=== PATIENT | female | born 1980 | race Caucasian/White ===

== ENCOUNTER 2019-12-18 10:42 | Outpatient (CLI) | payer MEDICAID, SELFPAY ==
--- NOTE | 2019-12-18 11:45 | MR_ITS ---
WS: [id number] MRI LUMBAR SPINE WITH AND WITHOUT CONTRAST. HISTORY: lumbar pain COMPARISON: 10/02/2019 and 09/11/2018 and 02/26/2018 TECHNIQUE: Sagittal and axial multisequence imaging is submitted. Postcontrast imaging in 2 planes. Mild straightening of the normal lumbar lordosis. Mild disc desiccation L2-3 and L3-4. No marrow shahid a or fracture. No widening of the neural foramen. There is a well-circumscribed soft tissue mass which is been previously described posteriorly at the L5-S1 level. Suspect this is an intradural lesion and surrounded by CSF. Mild displacement of the lef t-sided nerve roots. On the postcontrast imaging there is intense enhancement and this lesion measure s 9 x 8 mm without significant increase in size. There is no extension into the neural foramen. There is mild thickening and possible dural extension to the LEFT. Conus terminates normally at L1-2 disc level. L1-L2: Fluid in the facet joints. No stenosis. L2-L3: Mild asymmetric disc bulging to the LEFT. Very mild broad-based LEFT foraminal protrusion. L3-L4: Mild facet arthritis. L4-L5: Normal. L5-S1: No stenosis. Negative retroperitoneum. MR/MR lumbar spine wo/w con [id number] IMPRESSION: 1. Long-term stability of an intrathecal mass with intense enhancement posteri lashawn and to the LEFT at L5-S1. Mass measures 9 x 8 mm with no increase in size over several years. Favor schwannoma. 2. No central or foraminal stenosis or other abnormalities.
== END 2019-12-18 10:43 | disposition home or self-care (01) ==
LOC: RADSHAW 10:45
PROVIDERS: PCP Nurse Practitioner Family; Visit Provider Specialist
DX: M54.5 Low back pain (principal)
CPT/HCPCS: 72158; A9579

== ENCOUNTER 2019-12-30 09:53 | Day surgery (SDC) | payer MEDICAID, SELFPAY ==
[2019-12-30] VITALS (17 sets, daily range): BP systolic 134–192; BP diastolic 67–106; PULSE 73–104; RESP 18–30; TEMP 36.2–37.6; O2SAT 96–100
--- NOTE | 2019-12-30 10:20 | ANES.PREANE2 ---
Pre-Anesthetic Assessment Pre-Anesthetic Assessment: Height/Weight: Height 1.6 m Weight 116.12 kg Temp Pulse Resp BP Pulse Ox 99.6 F 87 18 145/106 100 12/30/19 10:17 12/30/19 10:17 12/30/19 10:17 12/30/19 10:17 12/30/19 10:17 Preop Diagnosis: Melena, cholelithiasis Proposed Procedure: Operation Date: 12/30/19 11:40 Proposed Procedures p EGD/Possible biopsy [id number] K21.9 K81.9(Not Applicable) - Bart Patterson MD s Laparoscopic Cholecystectomy/Possible open(Not Applicable) - Bart Patterson MD Familial anesthetic complications: none Was Beta Benito taken within 24 hours: N/A Last intake: Intake Last Liquid Date 12/30/19 Last Liquid Time 07:00 Last Solid Date 12/29/19 Last Solid Time 18:00 Social: Social History: No alcohol and No tobacco Airway: Cervical ROM: WNL MP: 2 Dentition: Other (missing) CV/HEM: CV/HEM: HTN GI: GI: GERD Metabolic: Metabolic: Morbid obesity Neuropsych: Comments: schwannoma (L) Anesthetic Plan: ASA status: 2 Anesthesia: General Risk of > 500 ml blood loss (7ml/kg in children): No PFSH Anesthesia PFSH: Medical History GERD (gastroesophageal reflux disease) Hypercholesterolemia Hypertension Intervertebral disc disorder with radiculopathy of lumbosacral region Schwannoma Surgical History (Updated 12/30/19 @ 08:27 by Bart Patterson MD) H/O dilation and curettage History of colonoscopy History of esophagogastroduodenoscopy (EGD) (12/30/19) S/P laparotomy for ectopic Status post laparoscopic cholecystectomy (12/30/19) Family History Father Hypertension Mother Hypertension Social History Smoking and tobacco status: never smoked Alcohol intake: never Marital status: Single Current occupational status: unemployed History of recent travel: No Data Anesthesia Cardiac Studies: No Data to Display
[2019-12-30] MEDS: sodium chloride 0.9% 1,000 ML 30 ML IV (10:34)
[2019-12-30] MEDS: ondansetron 2 mg/ML SDV 2 mL 4 MG IVP ×3 (10:35→12:53)
[2019-12-30] MEDS: scopolamine 1.5 Patch 1 PATCH TRANSDERMA (10:35)
--- NOTE | 2019-12-30 12:24 | SUR.PHASEI ---
1223 PATIENT TO PACU FROM OR. NO DISTRESS. PWD. PLACED ON SIMPLE MASK AT 8L, SPO2 96%. 4 STABS TO ABDOMEN, CLOSED WITH EXOFIN.
[2019-12-30] MEDS: fentaNYL 50 mcg/mL INJ 2mL IVP ×2 (12:32→12:47)
[2019-12-30] MEDS: meperidine 50 mg/mL INJ 12.5 MG IVP ×2 (12:37→12:44)
[2019-12-30] MEDS: metoclopramide 5 mg/mL SDV 2 mL 10 MG IVP (12:57)
[2019-12-30] MEDS: morphine 4 mg/mL SDV 1 mL 2 MG IVP (13:00)
--- NOTE | 2019-12-30 13:12 | SUR.PHASEI ---
1307 PATIENT TO OPS AT THIS TIME. NAUSEA IMPROVED. PATIENT CONTINUES TO RATE PAIN 7/10. PATIENT NEEDING TO USE BATHROOM, DECLINES BEDPAN. THIS NURSE ASSISTED PATIENT TO BSC. ANESTHESIA AWARE OF LAST DOSE OF PAIN MEDICATION, THIS NURSE REMAINED WITH PATIENT UNTIL 1315.
--- NOTE | 2019-12-31 10:23 | PM.OP ---
Operative Report Date of procedure: December 30, 2019 Pre-op Diagnosis: Melena, cholelithiasis Post-op Diagnosis: Normal EGD Cholelithiasis Procedure Done: Normal esophagogastroduodenoscopy Laparoscopic cholecystectomy Pathology: none sent Surgeon: Bart Patterson Anesthesia: General Estimated blood loss (mL): 10 Condition: stable Disposition: PACU Procedure: The patient was taken to the operating room and was intubated under general anesthesia. After the antibiotic had been administered, the abdomen was prepped and draped in a sterile manner. Using a #15 blade, a 1 centimeter infraumbilical curvilinear incision was made and using an open Melly technique the peritoneal cavity was entered. A 10 millimeter port was placed and 15 millimeters of pneumoperitoneum was created. A 10 millimeter, 30 degrees scope was then introduced. Three 5 millimeter ports were placed in the epigastric, midclavicular and the anterior axillary line two fingerbreadths below the costal margin on the right side under the direct visualization. Ratcheted forceps were introduced into the lateral most port and was used to retract the fundus of the gallbladder cephalad and using forceps the infundibulum of the gallbladder was retracted laterally. Using L-hook cautery the peritoneum overlying the Calot's triangle was opened medially and laterally until the cystic duct and the cystic artery were skeletonized. Dissection was carried along the body of the gallbladder and after ensuring critical view of safety, 4 clips applied on the cystic duct and 3 clips applied on the cystic artery and cut leaving, 3 clips on the remaining portion of the duct and 2 clips on the remaining portion of the artery. The rest of the gallbladder was dissected off the liver using L-hook cautery. There was no bleeding or bile leaking noted from the gallbladder fossa and the clips appeared to be in place. An EndoCatch bag was introduced to remove the gallbladder. All the ports were removed under direct visualization and there was no bleeding noted from the port sites. The fascia of the umbilicus was closed using [id number] 0 Vicryl sutures and the subcutaneous tissue was approximated using 3-0 Vicryl sutures. The skin at all four ports were closed using 4-0 Monocryl and Dermabond. A total of 10 millimeters of 0.5% Marcaine was infiltrated around the port sites. A bite-block was placed and the gastroscope was introduced and advanced up to the second portion of the duodenum and slowly withdrawn. The first and second portion of the duodenum was normal. The pylorus, antrum, body and fundus of the stomach was normal. Z line at 40 cm. The rest of the esophagus was normal. The gastroscope was withdrawn. The patient was stable throughout the procedure.
--- NOTE | 2020-01-07 15:59 | W.PM.OPSUD ---
Surgery/Procedure H&P Update DATE OF PROCEDURE: December 30, 2019 DATE H&P PERFORMED: 12/29/19 H&P UPDATE INFORMATION: I have reviewed H&P completed within last 30 days, I have examined patient prior to procedure and No changes to prior documentation PREOP DIAGNOSIS: Melena, cholelithiasis PLANNED PROCEDURE: Operation Date: 12/30/19 11:40 Proposed Procedures p EGD/Possible biopsy [id number] 32615 K21.9 K81.9(Not Applicable) - Bart Patterson MD s Laparoscopic Cholecystectomy/Possible open(Not Applicable) - Bart Patterson MD
== END 2019-12-30 13:59 | disposition home or self-care (01) ==
LOC: OR 09:56
PROVIDERS: PCP Nurse Practitioner Family; Visit Provider Surgery
PROC: 0DJ08ZZ Inspection of Upper Intestinal Tract, Via Natural or Artificial Opening Endoscopic (ICD-10-PCS; CPT 43235; principal; 2019-12-30 11:00)
PROC: 0FT44ZZ Resection of Gallbladder, Percutaneous Endoscopic Approach (ICD-10-PCS; CPT 47562; 2019-12-30 11:00)
DX: K80.10 Calculus of gallbladder with chronic cholecystitis without obstruction (principal); K92.1 Melena; I10 Essential (primary) hypertension; K21.9 Gastro-esophageal reflux disease without esophagitis; E66.01 Morbid (severe) obesity due to excess calories; Z68.42 Body mass index [BMI] 45.0-49.9, adult; Z79.891 Long term (current) use of opiate analgesic; E78.00 Pure hypercholesterolemia, unspecified; Z82.49 Family history of ischemic heart disease and other diseases of the circulatory system
CPT/HCPCS: 43235; 47562; 12345; 88304; J0690; J2175; J2270; J2405; J2704; J2765; J3010; J3490; J7030

== ENCOUNTER 2020-01-16 13:30 | Emergency (ER) | payer MEDICAID, SELFPAY ==
[2020-01-16 14:00] VITALS: BP 146/98; PULSE 130; RESP 26; TEMP 37.2; O2SAT 96; BMI 43.5
--- NOTE | 2020-01-16 14:38 | W.ED.NAVMDI ---
HPI - Nausea/Vomiting/Diarrhea General: Chief complaint: Nausea/Vomiting/Diarrhea Stated complaint: n/v two days Time Seen by Provider: 01/16/20 14:14 History of Present Illness: HPI Narrative: Patient is a 39-year-old female who comes the ED with abdominal pain, nausea and vomiting. Symptoms started approximately 2 days ago. Patient had a laparoscopic cholecystectomy performed on December 29, with no complications. For the past 2 days patient says she has had right upper quadrant abdominal pain that she rates a 10 out of 10. The nausea and vomiting is been constant and she is not been able to keep any food or drink down. Associated nausea: Yes Associated symtoms: Reports nausea; Denies change in vision, chest pain, dysuria, fatigue, headache(s) or palpitations Review of Systems Const: Denies: fever(s), chills or fatigue Eyes: Denies: change in vision or eye discomfort ENMT: Denies: throat pain, odynophagia, nasal discharge or nasal congestion Card: Denies: chest pain, palpitations, edema, swelling of feet/ankles, dyspnea on exertion or orthopnea Resp: Denies: dyspnea, productive cough or non-productive cough GI: Reports: abdominal pain (RUQ), nausea and vomiting; Denies: diarrhea, constipation or hematochezia : Denies: flank pain, dysuria or hematuria Musc: Denies: neck pain, back pain or extremity swelling Skin/Breast: Denies: rash or new lesions Neuro: Denies: headache(s), numbness in extremities or weakness in extremities PFS ED PFSH: Medical History GERD (gastroesophageal reflux disease) Hypercholesterolemia Hypertension Intervertebral disc disorder with radiculopathy of lumbosacral region Schwannoma Surgical History H/O dilation and curettage History of colonoscopy History of esophagogastroduodenoscopy (EGD) (12/30/19) S/P laparotomy for ectopic Status post laparoscopic cholecystectomy (12/30/19) Family History Father Hypertension Mother Hypertension Social History Smoking and tobacco status: never smoked Alcohol intake: never Marital status: Single Current occupational status: unemployed History of recent travel: No Physical Exam Const: COMMON NORMALS: patient oriented x3 and alert GENERAL APPEARANCE: cooperative and ill appearing (Patient appears uncomfortable and in pain.) HENMT: COMMON NORMALS: normocephalic HEAD & SCALP: normocephalic MOUTH: Normal oral and palatal mucosa present THROAT: posterior oropharynx normal and uvula midline Eye: COMMON NORMALS: Equal, round and reactive pupils present PUPIL: Yes Equal, round and reactive pupils present Neck/C-Spine: COMMON NORMALS: supple GENERAL: Yes normal visual inspection Resp: COMMON NORMALS: normal respiratory effort, No retractions, No use of accessory muscles and clear to auscultation bilaterally AUSCULTATION: clear to auscultation bilaterally Cardio: COMMON NORMALS: regular rate, regular rhythm, S1 normal heart sound present, S2 normal heart sound present, No gallops present (Cardio), No clicks present (Cardio), No murmurs present (Cardio) and Peripheral pulses 2+ throughout RATE: regular rate RHYTHM: regular rhythm HEART SOUNDS: S1 normal heart sound present and S2 normal heart sound present PERIPHERAL PULSES: Peripheral pulses 2+ throughout GI: COMMON NORMALS: Normal to inspection, nondistended, normoactive bowel sounds present, Soft to palpation and no masses INSPECTION: Yes central obesity AUSCULTATION: Yes normoactive bowel sounds PALPATION: Yes Soft to palpation and Yes Tenderness to palpation present (GI) Details: RUQ : COMMON NORMALS: Yes no CVA tenderness BLADDER/KIDNEY EXAM: Yes no CVA tenderness Back/Pelvis: COMMON NORMALS: no CVA tenderness Extremity: COMMON NORMALS: normal to inspection Neuro: COMMON NORMALS: patient oriented x3 and moves all extremities SENSORIUM/ORIENTATION: Yes alert Skin: COMMON NORMALS: no rashes or lesions noted GENERAL SKIN EXAM: no rashes or lesions noted and dry skin Course Vital Signs: Vital signs: Vital Signs Temperature 99.0 F 01/16/20 14:00 Pulse Rate 103 H 01/16/20 17:48 Respiratory Rate 14 01/16/20 17:48 Blood Pressure 138/84 01/16/20 17:48 Pulse Oximetry 92 01/16/20 17:48 MDM - Nausea/Vomiting/Diarrhea MDM Narrative: Medical decision making narrative: Patient care was handed over to Aroldo Davenport's EQUIPMENT WASHER at 5 PM. I discussed patient's case with him and told him I am waiting on CT results to determine discharge plan. Patient is a 39-year-old female comes to the ED with right upper quadrant abdominal pain, nausea and vomiting. White blood cell count 16.7. Patient's pain nausea and vomiting was controlled with IV fluids Dilaudid, Reglan. Ultrasound of the right upper quadrant showed no acute findings. CT of the abdomen showed colitis. Patient was discharged and given a prescription for ciprofloxacin, Flagyl and promethazine. Follow-up with PCP in several days and return to ED precautions given. Patient understood and agreed with plan. Lab Data: Attestation: I reviewed the patient's lab results. Labs: Lab Results 01/16/20 01/16/20 01/16/20 Range/Units 14:45 14:45 14:45 WBC 16.7 H (4.0-10.0) 10^3/ uL RBC 4.36 (4.1-5.3) 10^6/u L Hgb 13.0 (11.5-15.3) g/dL Hct 39.1 (37.0-47.0) % MCV 89.7 (81-99) fL MCH 29.8 (28.0-34.0) pg MCHC 33.2 (30.0-36.0) g/dL RDW 12.6 (12.1-15.1) % Plt Count 385 (130-400) 10^3/c mm MPV 11.4 H (7.4-10.4) fL Neut % (Auto) 80.4 % Lymph % (Auto) 10.7 % Atlantic % (Auto) 8.2 % Eos % (Auto) 0.0 % Baso % (Auto) 0.2 % Neut # (Auto) 13.42 H (1.8-7.7) 10^3/u L Lymph # (Auto) 1.8 (0.8-4.8) 10^3/u L Atlantic # (Auto) 1.4 H (0.2-0.9) 10^3/u L Eos # (Auto) 0.0 (0.0-0.8) 10^3/u L Baso # (Auto) 0.0 (0.0-0.1) 10^3/u L Nucleated RBC % (a uto) 0 % Nucleated RBCs # 0.0 /100WBC Sodium 144 (136-145) mmol/L Potassium 3.4 L (3.5-5.1) mmol/L Chloride 99 (98-107) mmol/L Carbon Dioxide 26 (22-29) mmol/L Anion Gap 22.4 H (5-19) BUN 16 (6-20) mg/dL Creatinine 1.4 H (0.5-0.9) mg/dL GFR Calculation 41.4 L (90-130) mL/min Glucose 142 H (65-115) mg/dL Calculated Osmolal ity 297 H (285-295) mOsm/k g Calcium 10.9 H (8.5-10.5) mg/dL Total Bilirubin 0.8 (0.15-1.2) mg/dL AST 36 H (0-32) U/L ALT 41 H (0-33) U/L Alkaline Phosphata se 60 (35-105) IU/L Total Protein 8.0 (6.6-8.7) g/dL Albumin 5.1 (3.5-5.2) g/dL Globulin 2.9 (1.3-4.6) g/dL Lipase 42 (13-60) U/L HCG, Qual Negative (Negative) Urine Color (Yellow) Urine Appearance (CLEAR) Urine pH (5-7) Ur Specific Gravit y (1.005-1.030) Urine Protein (Negative) Urine Glucose (UA) (Normal) Urine Ketones (Negative) Urine Blood (Negative) Urine Nitrate (Negative) Urine Bilirubin (NEGATIVE) Urine Urobilinogen (Negative) mg/dL Ur Leukocyte Anupama ase (Negative) Urine RBC (0-2) /hpf Urine WBC (0-5) /hpf Ur Squamous Epith Cells (0-5) Amorphous Sediment Urine Bacteria (NONE) Hyaline Casts Urine Mucus 01/16/20 Range/Units 16:31 WBC (4.0-10.0) 10^3/ uL RBC (4.1-5.3) 10^6/u L Hgb (11.5-15.3) g/dL Hct (37.0-47.0) % MCV (81-99) fL MCH (28.0-34.0) pg MCHC (30.0-36.0) g/dL RDW (12.1-15.1) % Plt Count (130-400) 10^3/c mm MPV (7.4-10.4) fL Neut % (Auto) % Lymph % (Auto) % Atlantic % (Auto) % Eos % (Auto) % Baso % (Auto) % Neut # (Auto) (1.8-7.7) 10^3/u L Lymph # (Auto) (0.8-4.8) 10^3/u L Atlantic # (Auto) (0.2-0.9) 10^3/u L Eos # (Auto) (0.0-0.8) 10^3/u L Baso # (Auto) (0.0-0.1) 10^3/u L Nucleated RBC % (a uto) % Nucleated RBCs # /100WBC Sodium (136-145) mmol/L Potassium (3.5-5.1) mmol/L Chloride (98-107) mmol/L Carbon Dioxide (22-29) mmol/L Anion Gap (5-19) BUN (6-20) mg/dL Creatinine (0.5-0.9) mg/dL GFR Calculation (90-130) mL/min Glucose (65-115) mg/dL Calculated Osmolal ity (285-295) mOsm/k g Calcium (8.5-10.5) mg/dL Total Bilirubin (0.15-1.2) mg/dL AST (0-32) U/L ALT (0-33) U/L Alkaline Phosphata se (35-105) IU/L Total Protein (6.6-8.7) g/dL Albumin (3.5-5.2) g/dL Globulin (1.3-4.6) g/dL Lipase (13-60) U/L HCG, Qual (Negative) Urine Color Yellow (Yellow) Urine Appearance Clear (CLEAR) Urine pH 5 (5-7) Ur Specific Gravit y 1.020 (1.005-1.030) Urine Protein 1+ H (Negative) Urine Glucose (UA) Norm (Normal) Urine Ketones 3+ H (Negative) Urine Blood 2+ H (Negative) Urine Nitrate Negative (Negative) Urine Bilirubin 1+ H (NEGATIVE) Urine Urobilinogen 1 H (Negative) mg/dL Ur Leukocyte Anupama ase Negative (Negative) Urine RBC None (0-2) /hpf Urine WBC 0-4 H (0-5) /hpf Ur Squamous Epith Cells 15-25 H (0-5) Amorphous Sediment Not Reportable Urine Bacteria 2+ H (NONE) Hyaline Casts 5-10 H Urine Mucus 1+ Imaging Data^: US: Attestation: I personally reviewed and interpreted this imaging study as follows: Radiologist's impression: [address] [address] Ultrasound Report Signed Patient: Florencia Corral Unit #: [id number] : 1980 Age/Sex: 39 / F ADM Date: 01/16/20 Loc: ER Room/Bed: Attending Dr: Ordering Provider/Ordering MD: Orlando Murray Date of Service: 01/16/20 Procedure(s): US abdomen limited [id number] Accession Number(s): [id number] Report Number: [id number] PROCEDURE INFORMATION: Exam: US Abdomen, Limited; Right Upper Quadrant Exam date and time: 01/16/2020 3:59 PM Age: 39 years old Clinical indication: Abdominal pain; Prior surgery; Surgery date: <1 month; Surgery type: Gb; Additional info: Ruq pain post cholecystectomy. TECHNIQUE: Imaging protocol: US abdomen. Real time ultrasound with image documentation. Limited exam focused on the right upper quadrant. COMPARISON: ES surgery / GI images 12/30/2019 10:03 AM FINDINGS: Liver: The liver is echogenic with attenuation of the ultrasound beam compatible probable fatty infiltration. The liver measures 13.9 cm in length. The liver is otherwise unremarkable. Gallbladder: Postoperative changes of a cholecystectomy are noted. Common bile duct: The common bile duct is within normal limits measuring 3.3 mm. Pancreas: Pancreas is obscured by bowel gas artifact. Right kidney: Normal. No mass. No hydronephrosis. Intraperitoneal space: No free fluid or ascites. US/US abdomen limited [id number] IMPRESSION: Probable fatty infiltration liver. Otherwise unremarkable exam status post cholecystectomy. Dictated By: Mireya Hardy Signed By: Mireya Hardy Signed Date/Time: 01/16/20 161 DD/ 1618 CT Abd/Pel: Attestation: I personally reviewed and interpreted this imaging study as follows: Radiologist's impression: [facility] [address] [place] [address] CT Scan Report Signed Patient: Florencia Corral Unit #: [id number] : 1980 Age/Sex: 39 / F ADM Date: 01/16/20 Loc: ER Room/Bed: Attending Dr: Ordering Provider/Ordering MD: Orlando Murray Date of Service: 01/16/20 Procedure(s): CT abdomen pelvis con [id number] Accession Number(s): [id number] Report Number: [id number] PROCEDURE INFORMATION: Exam: CT Abdomen And Pelvis Without Contrast Exam date and time: 01/16/2020 4:31 PM Age: 39 years old Clinical indication: Abdominal pain; Generalized; Prior surgery; Surgery date: <1 month; Surgery type: Gb; Patient HX: C/O abd cramping w n/v x 2 days; Additional info: Abdominal pain with n/v TECHNIQUE: Imaging protocol: Computed tomography of the abdomen and pelvis without contrast. Radiation optimization: All CT scans at this facility use at least one of these dose optimization techniques: automated exposure control; mA and/or kV adjustment per patient size (includes targeted exams where dose is matched to clinical indication); or iterative reconstruction. COMPARISON: US abdomen limited [id number] 01/16/2020 3:54 PM RADIATION DOSE METRICS: Total DLP (mGy-cm): 1894.62 FINDINGS: Mediastinal space: A small hiatal hernia is present. Liver: There is a diffuse decrease in hepatic parenchymal density, consistent with fatty infiltration. Gallbladder and bile ducts: There has been a cholecystectomy. Pancreas: Normal. No ductal dilation. Spleen: The spleen is normal. An accessory splenule is present. Adrenals: Normal. No mass. Kidneys and ureters: There is no evidence of hydronephrosis. There is no evidence of renal calcifications. Stomach and bowel: There is wall thickening with mild haziness of the fat involving the ascending and transverse colon concerning for mild colitis. The wall of the descending and sigmoid colon also appears slightly thickened but this is less prominent and this segment of colon may simply be lack of distension. The loops of small bowel have an appropriate appearance. Appendix: A normal appendix is identified. Intraperitoneal space: Unremarkable. No free air. No significant fluid collection. Vasculature: Unremarkable.No abdominal aortic aneurysm. Lymph nodes: Unremarkable.No enlarged lymph nodes. Bladder: The bladder is decompressed. Reproductive: An intrauterine device is present. Uterus and ovaries are unremarkable. Bones/joints: Unremarkable. No acute fracture. Soft tissues: There is haziness of the subcutaneous fat adjacent to the umbilicus that may reflect cellulitis without abscess. CT/CT abdomen pelvis wo con [id number] IMPRESSION: 1. There is wall thickening with mild haziness of the fat involving the ascending and transverse colon compatible with mild colitis. No abscess or free air. Probable lack of distension or less prominent mild colitis of the remaining distal colon. 2. There is haziness of the subcutaneous fat adjacent to the umbilicus that may reflect cellulitis without abscess. Radiation Dose CTDIVOL = (mGy): DLP = 1894.62 (mGy-cm) Dictated By: Mireya Hardy Signed By: Mireya Hardy Signed Date/Time: 01/16/201716 DD/ 15 Discharge Plan Discharge Patient Disposition: Home Clinical Impression: Colitis Condition: Stable Prescriptions: New ciprofloxacin HCl 500 mg tablet 500 mg PO BID Qty: 14 RF: 0 Flagyl 500 mg tablet 500 mg PO BID 7 Days Qty: 14 RF: 0 promethazine 12.5 mg tablet 12.5 mg PO QID PRN (Reason: nausea and vomiting) Qty: 14 RF: 0 Held tizanidine 4 mg tablet 4 mg PO Q6H PRN (Reason: muscle spasms) RF: 0 Hold Instructions: Resume on 01/23/20. Discontinued ondansetron HCl 4 mg tablet 4 mg PO BID RF: 0 No Action hydroxyzine HCl 50 mg tablet 50 mg PO BEDTIME RF: 0 pantoprazole 40 mg tablet,delayed release (DR/EC) 40 mg PO BID RF: 0 citalopram [Celexa] 40 mg tablet 40 mg PO DAILY RF: 0 lisinopril-hydrochlorothiazide 10-12.5 mg tablet 1 tab PO DAILY RF: 0 hydrocodone-acetaminophen [Etoile] 10-325 mg tablet 1 tab PO Q8H PRN (Reason: Pain) RF: 0 hydroxyzine pamoate 100 mg capsule 100 mg PO BEDTIME RF: 0 Discharge Orders: Discharge Order (Routine); Ordered 01/16/20 Ordered By: Aroldo Davenport Referrals: Olivia Solorio FNP [Primary Care Provider] - Discharge Diet: Advance as tolerated Discharge Activity: Resume usual activity Patient Instructions: Infectious Colitis (ED) Activity Restrictions/Additional Instructions: Follow-up with medical provider as directed. Take medications as prescribed. Return to the ER or your medical provider if condition worsens. Please read and understand discharge instructions. If any questions ask please. Hold are decrease decreased dosage of hydrocodone follow-up with your surgeon in a week. 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
[2020-01-16 14:58] LABS: Basophils % 0.2 %; Hematocrit 39.1 % (37.0-47.0); Lymphocytes # 1.8 10^3/uL (0.8-4.8); Lymphocytes % 10.7 %; Mean Corpuscular HGB Conc 33.2 g/dL (30.0-36.0); Mean Corpuscular Hemoglobin 29.8 pg (28.0-34.0); Mean Corpuscular Volume 89.7 fL (81-99); Mean Platelet Volume 11.4 fL (7.4-10.4); Monocytes # 1.4 10^3/uL (0.2-0.9); Monocytes % 8.2 %; Neutrophils # 13.42 10^3/uL (1.8-7.7); Neutrophils % 80.4 %; Nucleated Red Blood Cells % 0 %; Platelet Count 385 10^3/cmm (130-400); Red Blood Count 4.36 10^6/uL (4.1-5.3); Red Cell Distribution Width 12.6 % (12.1-15.1); White Blood Count 16.7 10^3/uL (4.0-10.0)
[2020-01-16] MEDS: metoclopramide 5 mg/mL SDV 2 mL 10 MG IVP (15:00)
[2020-01-16] MEDS: sodium chloride 0.9% 1,000 ML 999 ML IV (15:00)
[2020-01-16] MEDS: morphine 4 mg/mL SDV 1 mL IVP (15:02)
[2020-01-16 15:04] VITALS: BP 157/98; PULSE 119; RESP 22; O2SAT 96
[2020-01-16 15:08] LABS: Alanine Aminotransferase 41 U/L (0-33); Albumin Level 5.1 g/dL (3.5-5.2); Alkaline Phosphatase 60 IU/L (35-105); Anion Gap 22.4 (5-19); Aspartate Amino Transferase 36 U/L (0-32); Blood Urea Nitrogen 16 mg/dL (6-20); Calcium 10.9 mg/dL (8.5-10.5); Carbon Dioxide 26 mmol/L (22-29); Chloride 99 mmol/L (98-107); Globulin 2.9 g/dL (1.3-4.6); Glomerular Filtration Rate 41.4 mL/min (90-130); Glucose 142 mg/dL (65-115); HCG, Serum Qual Negative (Negative); Lipase 42 U/L (13-60); Osmolality Calculated 297 mOsm/kg (285-295); Potassium 3.4 mmol/L (3.5-5.1); Sodium 144 mmol/L (136-145); Total Bilirubin 0.8 mg/dL (0.15-1.2)
--- NOTE | 2020-01-16 15:16 | USR_ITS ---
PROCEDURE INFORMATION: Exam: US Abdomen, Limited; Right Upper Quadrant Exam date and time: 01/16/2020 3:59 PM Age: 39 years old Clinical indication: Abdominal pain; Prior surgery; Surgery date: <1 month; Surgery type: Gb; Additional info: Ruq pain post cholecystectomy. TECHNIQUE: Imaging protocol: US abdomen. Real time ultrasound with image documentation. Limited exam focused on the right upper quadrant. COMPARISON: ES surgery / GI images 12/30/2019 10:03 AM FINDINGS: Liver: The liver is echogenic with attenuation of the ultrasound beam compatible probable fatty infiltration. The liver measures 13.9 cm in length. The liver is otherwise unremarkable. Gallbladder: Postoperative changes of a cholecystectomy are noted. Common bile duct: The common bile duct is within normal limits measuring 3.3 mm. Pancreas: Pancreas is obscured by bowel gas artifact. Right kidney: Normal. No mass. No hydronephrosis. Intraperitoneal space: No free fluid or ascites. US/US abdomen limited [id number] IMPRESSION: Probable fatty infiltration liver. Otherwise unremarkable exam status post cholecystectomy.
--- NOTE | 2020-01-16 16:28 | CTR_ITS ---
PROCEDURE INFORMATION: Exam: CT Abdomen And Pelvis Without Contrast Exam date and time: 01/16/2020 4:31 PM Age: 39 years old Clinical indication: Abdominal pain; Generalized; Prior surgery; Surgery date: <1 month; Surgery type: Gb; Patient HX: C/O abd cramping w n/v x 2 days; Additional info: Abdominal pain with n/v TECHNIQUE: Imaging protocol: Computed tomography of the abdomen and pelvis without contrast. Radiation optimization: All CT scans at this facility use at least one of these dose optimization techniques: automated exposure control; mA and/or kV adjustment per patient size (includes targeted exams where dose is matched to clinical indication); or iterative reconstruction. COMPARISON: US abdomen limited [id number] 01/16/2020 3:54 PM RADIATION DOSE METRICS: Total DLP (mGy-cm): 1894.62 FINDINGS: Mediastinal space: A small hiatal hernia is present. Liver: There is a diffuse decrease in hepatic parenchymal density, consistent with fatty infiltration. Gallbladder and bile ducts: There has been a cholecystectomy. Pancreas: Normal. No ductal dilation. Spleen: The spleen is normal. An accessory splenule is present. Adrenals: Normal. No mass. Kidneys and ureters: There is no evidence of hydronephrosis. There is no evidence of renal calcifications. Stomach and bowel: There is wall thickening with mild haziness of the fat involving the ascending and transverse colon concerning for mild colitis. The wall of the descending and sigmoid colon also appears slightly thickened but this is less prominent and this segment of colon may simply be lack of distension. The loops of small bowel have an appropriate appearance. Appendix: A normal appendix is identified. Intraperitoneal space: Unremarkable. No free air. No significant fluid collection. Vasculature: Unremarkable.No abdominal aortic aneurysm. Lymph nodes: Unremarkable.No enlarged lymph nodes. Bladder: The bladder is decompressed. Reproductive: An intrauterine device is present. Uterus and ovaries are unremarkable. Bones/joints: Unremarkable. No acute fracture. Soft tissues: There is haziness of the subcutaneous fat adjacent to the umbilicus that may reflect cellulitis without abscess. CT/CT abdomen pelvis wo con [id number] IMPRESSION: 1. There is wall thickening with mild haziness of the fat involving the ascending and transverse colon compatible with mild colitis. No abscess or free air. Probable lack of distension or less prominent mild colitis of the remaining distal colon. 2. There is haziness of the subcutaneous fat adjacent to the umbilicus that may reflect cellulitis without abscess. Radiation Dose CTDIVOL = (mGy): DLP = 1894.62 (mGy-cm)
[2020-01-16] MEDS: HYDROmorphone 1 mg/mL INJ 1 mL IVP (16:32)
[2020-01-16 16:34] VITALS: BP 146/118; PULSE 122; RESP 14; O2SAT 96
[2020-01-16 17:19] LABS: Add Urine Microscopic? YES; Bilirubin Urine 1+ (NEGATIVE); Blood Urine 2+ (Negative); Glucose Urine UA Norm (Normal); Ketones Urine 3+ (Negative); Leukocyte Esterase Urine Negative (Negative); Nitrate Urine Negative (Negative); Protein Urine 1+ (Negative); Urine Appearance Clear (CLEAR); Urine Color Yellow (Yellow); Urobilinogen Urine 1 mg/dL (Negative); pH Urine 5 (5-7)
[2020-01-16 17:32] LABS: Bacteria Urine 2+; Mucus Urine 1+; Squamous Epithelial Cell Urine 15-25 (0-5); WBC Urine 0-4 /hpf (0-5)
[2020-01-16 17:33] LABS: Add Urine Culture? No
[2020-01-16 17:48] VITALS: BP 138/84; PULSE 103; RESP 14; O2SAT 92
== END 2020-01-16 17:49 | disposition home or self-care (01) ==
PROVIDERS: Emergency Medicine; Physician Assistant; Emergency Provider Nurse Practitioner Family; PCP Nurse Practitioner Family
DX: K52.9 Noninfective gastroenteritis and colitis, unspecified (principal); I10 Essential (primary) hypertension
CPT/HCPCS: 12345; 74176; 76705; 80053; 81001; 83690; 84703; 85025; 87040; 96361; 96374; 96375; 99283; 99284; J1170; J2270; J2765; J7030

== ENCOUNTER → 2020-03-03 10:38 | Outpatient (BNVA) | payer MEDICAID, SELFPAY | PROVIDERS: PCP Nurse Practitioner Family; Visit Provider Licensed Practical Nurse | DX: D36.10 Benign neoplasm of peripheral nerves and autonomic nervous system, unspecified (principal); E66.01 Morbid (severe) obesity due to excess calories; Z68.41 Body mass index [BMI] 40.0-44.9, adult | CPT/HCPCS: 99213 ==

== ENCOUNTER → 2020-03-15 15:39 | Outpatient (BNVA) | payer MEDICAID, SELFPAY | PROVIDERS: PCP Nurse Practitioner Family; Visit Provider Nurse Practitioner Family | DX: M25.571 Pain in right ankle and joints of right foot (principal) | CPT/HCPCS: 73610 ==

== ENCOUNTER → 2020-04-07 13:01 | Outpatient (BNVA) | payer MEDICAID, SELFPAY | PROVIDERS: PCP Nurse Practitioner Family; Visit Provider Licensed Practical Nurse | DX: D36.10 Benign neoplasm of peripheral nerves and autonomic nervous system, unspecified (principal); E66.01 Morbid (severe) obesity due to excess calories; M51.17 Intervertebral disc disorders with radiculopathy, lumbosacral region ==

== ENCOUNTER → 2020-08-22 10:26 | Outpatient (BNVA) | payer MEDICAID, SELFPAY | PROVIDERS: PCP Family Medicine; Visit Provider Specialist | DX: R20.0 Anesthesia of skin (principal); R20.2 Paresthesia of skin; D36.10 Benign neoplasm of peripheral nerves and autonomic nervous system, unspecified | CPT/HCPCS: 95886; 95910 ==

== ENCOUNTER 2021-02-14 07:24 | Emergency (ER) | payer MEDICAID, SELFPAY ==
[2021-02-14] VITALS (8 sets, daily range): BP systolic 160–205; BP diastolic 79–98; PULSE 85–111; RESP 18–22; TEMP 37.2; O2SAT 94–97; BMI 47.8
--- NOTE | 2021-02-14 07:50 | W.ED.NAVMDI ---
HPI - Nausea/Vomiting/Diarrhea General: Chief complaint: Nausea/Vomiting/Diarrhea Stated complaint: n/v/d x 2 days Time Seen by Provider: 02/14/21 07:26 Source: patient Mode of arrival: ambulatory Limitations: no limitations History of Present Illness: HPI Narrative: Patient is a 40-year-old female who presents to ED today along with her sister for complaints of nausea vomiting and diarrhea. Patient tells me she has had symptoms off and on for approximately a month. She was seen at [place] [facility] and initially tells me she was diagnosed with an obstruction and sent home with medications . After further clarification she believes she was actually diagnosed with severe constipation . She states she was recently started on Metformin by her PCP for a diagnosis of prediabetes. She states since that time she believes her symptoms have worsened. After speaking to patient further she tells me she has had episodes of similar symptoms for quite some time stating that she had a cholecystectomy last year secondary to symptoms but states the procedure did not seem to help. She is having mild abdominal pains and feels like her abdomen is bloated. She reports feeling flushed alternating with chills. States she is having phlegm that chokes her up and causes her to vomit. She takes hydrocodone chronically for her lower back pain and has not been able to hold it down over the past 48 hours. No episodes of bloody emesis. She is not complaining of melanotic stools or hematochezia. MD elicited complaint: nausea, vomiting and diarrhea Description of diarrhea: watery Associated nausea: Yes Associated abdominal pain: Yes Location of pain: Diffuse Exacerbating factors: eating Relieving factors: none Context: new medication Associated symtoms: Reports bloating, fatigue and nausea; Denies change in vision, chest pain, dizziness, dysuria, headache(s), palpitations or syncope Review of Systems Const: Reports: chills, fatigue and other (flushed); Denies: fever(s), body aches or change in weight Eyes: Denies: change in vision ENMT: Reports: nasal discharge, nasal congestion and post nasal drip; Denies: throat pain, odynophagia, ear or mastoid pain or sinus pain Card: Denies: chest pain, palpitations, irregular heart rhythm, edema, lightheadedness, syncope or pre-syncope Resp: Denies: dyspnea, productive cough, non-productive cough, hemoptysis or chest congestion GI: Reports: abdominal pain, nausea, vomiting, diarrhea and bloating; Denies: hematemesis, rectal swelling, hematochezia or melena : Denies: flank pain or dysuria Musc: Reports: back pain (chronic) Skin/Breast: Denies: rash Neuro: Denies: headache(s), numbness in extremities, weakness in extremities, sensory changes or dizziness PFSH ED PFSH: Medical History GERD (gastroesophageal reflux disease) Hypercholesterolemia Hypertension Intervertebral disc disorder with radiculopathy of lumbosacral region Schwannoma Surgical History H/O dilation and curettage History of colonoscopy History of esophagogastroduodenoscopy (EGD) (12/30/19) S/P laparotomy for ectopic Status post laparoscopic cholecystectomy (12/30/19) Family History Father Hypertension Mother Hypertension Social History Smoking and tobacco status: never smoked Alcohol intake: never Household members: children Marital status: Single Current occupational status: unemployed History of recent travel: No Physical Exam Const: COMMON NORMALS: no acute distress, patient oriented x3, no limitations and alert GENERAL APPEARANCE: cooperative NUTRITIONAL APPEARANCE: obese morbidly obese ORIENTATION/CONSCIOUSNESS: Yes awake, Yes oriented to person, Yes oriented to place and Yes oriented to time HENMT: COMMON NORMALS: normocephalic and atraumatic HEAD & SCALP: normocephalic and atraumatic Resp: COMMON NORMALS: normal respiratory effort and clear to auscultation bilaterally AUSCULTATION: clear to auscultation bilaterally Cardio: COMMON NORMALS: regular rate and regular rhythm RATE: regular rate RHYTHM: regular rhythm GI: COMMON NORMALS: Normal to inspection, nondistended, normoactive bowel sounds present, Soft to palpation, No hepatosplenomegaly present and no masses PALPATION: Yes Soft to palpation, Yes Tenderness to palpation present (GI) (LUQ, mildly diffusely tender), No Guarding due to palpation present (GI), Yes No hepatosplenomegaly present and Yes Other GI palpation findings present (complains that her abdomen is bloated) : COMMON NORMALS: Yes no CVA tenderness BLADDER/KIDNEY EXAM: Yes no CVA tenderness Back/Pelvis: COMMON NORMALS: no CVA tenderness Neuro: COMMON NORMALS: patient oriented x3 SENSORIUM/ORIENTATION: Yes alert, Yes oriented to person, Yes oriented to place and Yes oriented to time Skin: COMMON NORMALS: no rashes or lesions noted GENERAL SKIN EXAM: no rashes or lesions noted Course Vital Signs: Vital signs: Vital Signs Temperature 98.9 F 02/14/21 07:31 Pulse Rate 95 02/14/21 11:29 Respiratory Rate 19 H 02/14/21 11:29 Blood Pressure 161/79 02/14/21 11:29 Pulse Oximetry 94 02/14/21 11:29 MDM - Nausea/Vomiting/Diarrhea MDM Narrative: Medical decision making narrative: I think symptoms are multi-factorial. Differential includes diabetic gastroparesis, cyclic vomiting syndrome, metformin side effect, opiate withdrawal. She has not had any episodes of diarrhea or vomiting while here. CT scan shows fluid distended stomach but no obstruction. She has a mild white count at 14.4. She has an elevated anion gap at 24. Mild elevations to her LFTs most likely consistent with her fatty liver. We will culture UA. She has no urinary symptoms. Patient was given 2L of fluids. Will discharge home with prescription for Reglan. Recommend follow-up with PCP soon as possible for further evaluation. Lab Data: Labs: Lab Results 02/14/21 02/14/21 02/14/21 Range/Units 08:13 08:13 08:13 WBC 14.4 H (4.0-10.0) 10^3/ uL RBC 4.51 (4.1-5.3) 10^6/u L Hgb 13.7 (11.5-15.3) g/dL Hct 41.4 (37.0-47.0) % MCV 91.8 (81-99) fl MCH 30.4 (28.0-34.0) pg MCHC 33.1 (30.0-36.0) g/dL RDW 13.1 (12.1-15.1) % Plt Count 375 (130-400) 10^3/c mm MPV 10.6 H (7.4-10.4) fL Neut % (Auto) 81.4 % Lymph % (Auto) 11.9 % [place] % (Auto) 5.6 % Eos % (Auto) 0.1 % Baso % (Auto) 0.4 % Neut # (Auto) 11.76 H (1.8-7.7) 10^3/u L Lymph # (Auto) 1.7 (0.8-4.8) 10^3/u L [place] # (Auto) 0.8 (0.2-0.9) 10^3/u L Eos # (Auto) 0.0 (0.0-0.8) 10^3/u L Baso # (Auto) 0.1 (0.0-0.1) 10^3/u L Nucleated RBC % (a uto) 0 % Nucleated RBCs # 0.0 /100WBC Sodium 140 (136-145) mmol/L Potassium 4.0 (3.5-5.1) mmol/L Chloride 98 (98-107) mmol/L Carbon Dioxide 22 (22-29) mmol/L Anion Gap 24.0 H (5-19) BUN 12 (6-20) mg/dL Creatinine 1.0 H (0.5-0.9) mg/dL GFR Calculation 60.8 L (90-130) mL/min Glucose 150 H (65-115) mg/dL Calculated Osmolal ity 293 (285-295) mOsm/k g Calcium 9.6 (8.5-10.5) mg/dL Total Bilirubin 0.7 (0.15-1.2) mg/dL AST 52 H (0-32) U/L ALT 78 H (0-33) U/L Alkaline Phosphata se 99 (35-105) IU/L Total Protein 8.6 (6.6-8.7) g/dL Albumin 4.5 (3.5-5.2) g/dL Globulin 4.1 (1.3-4.6) g/dL Lipase 29 (13-60) U/L TSH 1.55 (0.27-4.20) uIU/ mL HCG, Qual Negative (Negative) Urine Color (Yellow) Urine Appearance (CLEAR) Urine pH (5-7) Ur Specific Gravit y (1.005-1.030) Urine Protein (Negative) Urine Glucose (UA) (Normal) Urine Ketones (Negative) Urine Blood (Negative) Urine Nitrate (Negative) Urine Bilirubin (Negative) Urine Urobilinogen (Negative) mg/dL Ur Leukocyte Anupama ase (Negative) Urine RBC (0-2) /hpf Urine WBC (0-5) /hpf Ur Squamous Epith Cells (0-5) /hpf Amorphous Sediment Urine Bacteria (NONE) /hpf Urine Mucus /hpf SARS-CoV-2 Ag (Rap id) (Negative) 02/14/21 02/14/21 Range/Units 08:28 09:18 WBC (4.0-10.0) 10^3/ uL RBC (4.1-5.3) 10^6/u L Hgb (11.5-15.3) g/dL Hct (37.0-47.0) % MCV (81-99) fl MCH (28.0-34.0) pg MCHC (30.0-36.0) g/dL RDW (12.1-15.1) % Plt Count (130-400) 10^3/c mm MPV (7.4-10.4) fL Neut % (Auto) % Lymph % (Auto) % [place] % (Auto) % Eos % (Auto) % Baso % (Auto) % Neut # (Auto) (1.8-7.7) 10^3/u L Lymph # (Auto) (0.8-4.8) 10^3/u L [place] # (Auto) (0.2-0.9) 10^3/u L Eos # (Auto) (0.0-0.8) 10^3/u L Baso # (Auto) (0.0-0.1) 10^3/u L Nucleated RBC % (a uto) % Nucleated RBCs # /100WBC Sodium (136-145) mmol/L Potassium (3.5-5.1) mmol/L Chloride (98-107) mmol/L Carbon Dioxide (22-29) mmol/L Anion Gap (5-19) BUN (6-20) mg/dL Creatinine (0.5-0.9) mg/dL GFR Calculation (90-130) mL/min Glucose (65-115) mg/dL Calculated Osmolal ity (285-295) mOsm/k g Calcium (8.5-10.5) mg/dL Total Bilirubin (0.15-1.2) mg/dL AST (0-32) U/L ALT (0-33) U/L Alkaline Phosphata se (35-105) IU/L Total Protein (6.6-8.7) g/dL Albumin (3.5-5.2) g/dL Globulin (1.3-4.6) g/dL Lipase (13-60) U/L TSH (0.27-4.20) uIU/ mL HCG, Qual (Negative) Urine Color Yellow (Yellow) Urine Appearance Sl hazy (CLEAR) Urine pH 5 (5-7) Ur Specific Gravit y 1.015 (1.005-1.030) Urine Protein 1+ H (Negative) Urine Glucose (UA) Norm (Normal) Urine Ketones 2+ H (Negative) Urine Blood 3+ H (Negative) Urine Nitrate Negative (Negative) Urine Bilirubin 1+ H (Negative) Urine Urobilinogen 1 H (Negative) mg/dL Ur Leukocyte Anupama ase 1+ H (Negative) Urine RBC 10-15 H (0-2) /hpf Urine WBC 0-4 H (0-5) /hpf Ur Squamous Epith Cells 0-4 H (0-5) /hpf Amorphous Sediment Not Reportable Urine Bacteria 1+ H (NONE) /hpf Urine Mucus Trace /hpf SARS-CoV-2 Ag (Rap id) Negative (Negative) Imaging Data^: CT Abd/Pel: Radiologist's impression: [address] [id number] Scan ReportSigned Patient: Florencia Corral #: [id number]: 1980Acct#:[id number]/Sex: 40 / FADM Date: 02/14/21Loc: ERRoom/Bed:Attending Dr: Ordering Provider/Ordering MD: Soledad Ye Date of Service: 02/14/21 Procedure(s): CT abdomen pelvis w con* [id number] Accession Number(s): [id number] Report Number: [id number] WS: [id number] CT ABDOMEN PELVIS TECHNIQUE: Contrast-enhanced CT of the abdomen and pelvis with coronal and sagittal reformatted images. CLINICAL INFORMATION: abdominal pain, N/V/D COMPARISON: CT January 16, 2020 DLP: 2034.[address] scans at [facility] use at least one of these dose optimization techniques: automated exposure control; mA and/or kV adjustment per patient size (includes targeted exams where dose is matched to clinical indication); or iterative reconstruction. FINDINGS: Hepatomegaly. Diffuse fatty infiltration of the liver. Normal portal vein and splenic vein. Prior cholecystectomy. Incidental 2.2 cm enhancing hepatic lesion right hepatic lobe likely cavernous hemangioma. Lung bases are well aerated. Normal spleen. Normal GE junction. Adrenal glands are normal. Normal renal parenchymal enhancement. No hydronephrosis. Normal pancreas. Fluid distended stomach with air-fluid level. IUD appears in good position. Normal sigmoid colon. Normal appendix in the right lower quadrant. No evidence of small or large bowel obstruction. No free fluid in the abdomen or pelvis. CT/CT abdomen pelvis w con* [id number] IMPRESSION: 1. Hepatomegaly with diffuse fatty infiltration liver. 2. Prior cholecystectomy. 3. Fluid distended stomach with air-fluid level. 4. Colon is normal in appearance. No evidence of small or large bowel obstruction. 5. IUD appears in normal position. 6. No free fluid in the abdomen or pelvis. Dictated By:Hung Hernández MDSigned By:Hung Hernández MDSigned Date/Time:02/14/2106DD/ 0856 Discharge Plan Discharge Patient Disposition: Home Clinical Impression: Nausea and vomiting Qualifiers: Vomiting type: unspecified Vomiting Intractability: non-intractable Qualified Code(s): R11.2 - Nausea with vomiting, unspecified Diarrhea Qualifiers: Diarrhea type: unspecified type Qualified Code(s): R19.7 - Diarrhea, unspecified Condition: Stable Prescriptions: New Reglan 10 mg tablet 10 mg PO Q8H PRN (Reason: nausea and vomiting) Qty: 14 RF: 0 No Action (DME) DME: [facility] See Rx Instructions .ROUTE .MEDSUPPLY Qty: 1 RF: 0 pantoprazole 40 mg tablet,delayed release (DR/EC) 40 mg PO BID RF: 0 citalopram [Celexa] 40 mg tablet 40 mg PO DAILY RF: 0 lisinopril-hydrochlorothiazide 10-12.5 mg tablet 1 tab PO DAILY RF: 0 tizanidine 4 mg tablet 4 mg PO Q6H PRN (Reason: muscle spasms) RF: 0 Hold Instructions: Resume on 01/23/20. hydrocodone-acetaminophen 10-325 mg tablet 1 tab PO Q8H PRN (Reason: Pain) RF: 0 metformin 500 mg tablet 500 mg PO BID RF: 0 mirtazapine 30 mg tablet 30 mg PO BEDTIME RF: 0 zolpidem 5 mg tablet 5 mg PO BEDTIME PRN (Reason: Sleep) RF: 0 Narcan 4 mg/actuation spray,non-aerosol See Rx Instructions .ROUTE .COMPLEX RF: 0 Discharge Orders: Discharge ED (Routine); Ordered 02/14/21 Ordered By: Soledad Ye Referrals: Armando Burciaga DO [Primary Care Provider] - Patient Instructions: Acute Nausea and Vomiting (ED) Activity Restrictions/Additional Instructions: As we discussed please do a bland liquid diet over the next 48 hours and slowly increase as tolerated. You may try the Reglan 15 to 20 minutes prior to eating or taking medications. As we discussed please follow-up with primary care as soon as possible. We went over several etiologies that could explain your symptoms. These can be further followed up or discussed with primary care. You may return to the emergency department for severe abdominal pain, uncontrolled episodes of vomiting or diarrhea, fevers, or any other concerns you may have. I hope you begin to feel better soon. Coding Level of Care Code ED Burr Picker for Anu Fwd Exam Detailed
[2021-02-14 08:21] LABS: Basophils # 0.1 10^3/uL (0.0-0.1); Basophils % 0.4 %; Eosinophils % 0.1 %; Hematocrit 41.4 % (37.0-47.0); Hemoglobin 13.7 g/dL (11.5-15.3); Lymphocytes # 1.7 10^3/uL (0.8-4.8); Lymphocytes % 11.9 %; Mean Corpuscular HGB Conc 33.1 g/dL (30.0-36.0); Mean Corpuscular Hemoglobin 30.4 pg (28.0-34.0); Mean Corpuscular Volume 91.8 fl (81-99); Mean Platelet Volume 10.6 fL (7.4-10.4); Monocytes # 0.8 10^3/uL (0.2-0.9); Monocytes % 5.6 %; Neutrophils # 11.76 10^3/uL (1.8-7.7); Neutrophils % 81.4 %; Nucleated Red Blood Cells % 0 %; Platelet Count 375 10^3/cmm (130-400); Red Blood Count 4.51 10^6/uL (4.1-5.3); Red Cell Distribution Width 13.1 % (12.1-15.1); White Blood Count 14.4 10^3/uL (4.0-10.0)
[2021-02-14] MEDS: sodium chloride 0.9% 1,000 ML 999 ML IV ×2 (08:32→10:03)
--- NOTE | 2021-02-14 08:32 | CT_ITS ---
WS: [id number] CT ABDOMEN PELVIS TECHNIQUE: Contrast-enhanced CT of the abdomen and pelvis with coronal and sagittal reformatted image s. CLINICAL INFORMATION: abdominal pain, N/V/D COMPARISON: CT January 16, 2020 DLP: 2034.[address] scans at [facility] use at least one of these dose optimization techniques: automated e xposure control; mA and/or kV adjustment per patient size (includes targeted exams where dose is matc hed to clinical indication); or iterative reconstruction. FINDINGS: Hepatomegaly. Diffuse fatty infiltration of the liver. Normal portal vein and splenic vein. Prior cho lecystectomy. Incidental 2.2 cm enhancing hepatic lesion right hepatic lobe likely cavernous hemangioma. Lung bases are well aerated. Normal spleen. Normal GE junction. Adrenal glands are normal. Normal danya al parenchymal enhancement. No hydronephrosis. Normal pancreas. Fluid distended stomach with air-flui d level. IUD appears in good position. Normal sigmoid colon. Normal appendix in the right lower quadrant. No e vidence of small or large bowel obstruction. No free fluid in the abdomen or pelvis. CT/CT abdomen pelvis w con* [id number] IMPRESSION: 1. Hepatomegaly with diffuse fatty infiltration liver. 2. Prior cholecystectomy. 3. Fluid distended stomach with air-fluid level. 4. Colon is normal in appearance. No evidence of small or large bowel obstruct ion. 5. IUD appears in normal position. 6. No free fluid in the abdomen or pelvis.
[2021-02-14] MEDS: morphine 4 mg/mL SDV 1 mL IVP (08:33)
[2021-02-14] MEDS: ondansetron 2 mg/ML SDV 2 mL 4 MG IVP (08:33)
[2021-02-14 08:39] LABS: HCG, Serum Qual Negative (Negative)
[2021-02-14] MEDS: iohexol 300 mg/mL 100 mL Btl IV (08:45)
[2021-02-14 08:47] LABS: Alanine Aminotransferase 78 U/L (0-33); Albumin Level 4.5 g/dL (3.5-5.2); Alkaline Phosphatase 99 IU/L (35-105); Aspartate Amino Transferase 52 U/L (0-32); Blood Urea Nitrogen 12 mg/dL (6-20); Calcium 9.6 mg/dL (8.5-10.5); Carbon Dioxide 22 mmol/L (22-29); Chloride 98 mmol/L (98-107); Globulin 4.1 g/dL (1.3-4.6); Glomerular Filtration Rate 60.8 mL/min (90-130); Glucose 150 mg/dL (65-115); Lipase 29 U/L (13-60); Osmolality Calculated 293 mOsm/kg (285-295); Sodium 140 mmol/L (136-145); Thyroid Stimulating Hormone 1.55 uIU/mL (0.27-4.20); Total Bilirubin 0.7 mg/dL (0.15-1.2); Total Protein 8.6 g/dL (6.6-8.7)
[2021-02-14 09:01] LABS: SARS Covid-2 Antigen Negative (Negative)
[2021-02-14] MEDS: metoprolol tartrate 1 mg/1 mL SDV 5 mL 2.5 MG IVP (09:13)
[2021-02-14] MEDS: lisinopril 10 mg Tablet PO (09:13)
[2021-02-14] MEDS: metoclopramide 5 mg/mL SDV 2 mL 10 MG IVP (09:26)
[2021-02-14 09:50] LABS: Bilirubin Urine 1+ (Negative); Blood Urine 3+ (Negative); Glucose Urine UA Norm (Normal); Ketones Urine 2+ (Negative); Nitrate Urine Negative (Negative); Protein Urine 1+ (Negative); Specific Gravity, Urine 1.015 (1.005-1.030); Urine Appearance SL Hazy (CLEAR); Urine Color Yellow (Yellow); pH Urine 5 (5-7)
[2021-02-14 09:51] LABS: Add Urine Microscopic? YES; Leukocyte Esterase Urine 1+ (Negative); Urobilinogen Urine 1 mg/dL (Negative)
[2021-02-14] MEDS: ketorolac 30 mg/mL INJ IVP (10:02)
[2021-02-14 10:16] LABS: Add Urine Culture? Yes; Bacteria Urine 1+ /hpf; Mucus Urine TRACE /hpf; Squamous Epithelial Cell Urine 0-4 /hpf (0-5); WBC Urine 0-4 /hpf (0-5)
== END 2021-02-14 11:45 | disposition home or self-care (01) ==
PROVIDERS: Emergency Provider Physician Assistant; PCP Family Medicine
DX: R11.2 Nausea with vomiting, unspecified (principal); R19.7 Diarrhea, unspecified; Z79.84 Long term (current) use of oral hypoglycemic drugs; I10 Essential (primary) hypertension; Z20.822 Contact with and (suspected) exposure to COVID-19
CPT/HCPCS: 74177; 80053; 81001; 83690; 84443; 84703; 85025; 87077; 87086; 87186; 87426; 96361; 96374; 96375; 99284; J1885; J2270; J2405; J2765; J3490; J7030; Q9967

== ENCOUNTER 2021-03-22 07:34 | Outpatient (CLI) | payer MEDICAID, SELFPAY ==
--- NOTE | 2021-03-22 07:36 | MR_ITS ---
WS: [id number] MRI LUMBAR SPINE WITH AND WITHOUT CONTRAST. HISTORY: DEGENERATIVE DISC DISEASE,LUMBAR;SCHWANNOMA OF SPINAL CORD COMPARISON: 12/18/2019 TECHNIQUE: Sagittal and axial multisequence imaging is submitted. Sagittal and axial T1 fat sat seque nces post-MultiHance 20 cc IV. C6-7 central disc protrusion. Mild facet arthritis at the T8 level. Lumbar alignment is normal. No significant disc space narrowing and desiccation. No marrow edema or f racture. Disc spaces and vertebral body heights are well-preserved. Conus terminates normally at L1. L1-L2: Normal. L2-L3: Mild asymmetric LEFT foraminal disc protrusion. Not causing significant stenosis and only mild encroachment into the subarticular recess. L3-L4: Mild bilateral facet joint arthritis and ligamentum flavum arthritis. L4-L5: Small osteophytes encroaching into the LEFT foramen without significant stenosis. L5-S1: Normal. Intensely enhancing soft tissue mass measuring 10 mm in length centered in the intrathecal sac roof tile layer ior to the L5 vertebral body and to the LEFT of midline. Transverse diameter of 9 mm. No significant increase in size of the intensely enhancing mass which is probably a schwannoma. Mass is inseparable from several of the nerve roots in the LEFT lateral thecal sac at the L5-S1 level. MR/MR lumbar spine wo/w con [id number] IMPRESSION: 1. Stable intrathecal mass measuring 10 x 9 mm posterior to L5 on the LEFT. Mo st consistent with a schwannoma with no progression in size. 2. New small LEFT foraminal disc protrusion at L2-3 with no contact on the ner ve roots.
[2021-03-22] MEDS: gadobenate dimeglumine 20 mL vial IV (08:49)
== END 2021-03-22 07:35 | disposition home or self-care (01) ==
LOC: RADSHAW 07:35
PROVIDERS: PCP Family Medicine; Visit Provider Family Medicine
DX: M51.36 Other intervertebral disc degeneration, lumbar region (principal); D33.4 Benign neoplasm of spinal cord
CPT/HCPCS: 72158; A9577

== ENCOUNTER → 2022-01-31 10:46 | Outpatient (BNVA) | payer MEDICAID, SELFPAY | PROVIDERS: PCP Family Medicine; Referring Provider Family Medicine; Visit Provider Podiatrist Foot & Ankle Surgery | DX: S82.852A Displaced trimalleolar fracture of left lower leg, initial encounter for closed fracture (principal); W19.XXXA Unspecified fall, initial encounter | CPT/HCPCS: 29515; 99203; 99204 ==

== ENCOUNTER 2022-02-15 10:17 | Day surgery (SDC) | payer MEDICAID, SELFPAY ==
[2022-02-07 11:21] VITALS: BMI 49.6
--- NOTE | 2022-02-15 | XR_ITS ---
WS: [id number] Left ankle, Clinical Data: ORIF left ankler Comparison: None. Findings: No fractures or dislocations are seen. The ankle mortise is normal. The talus and calcaneus are unrem arkable. No soft tissue swelling over the medial or lateral malleolus is seen. XR/XR ankle LT 2V [id number] Impression: Negative left ankle.
--- NOTE | 2022-02-15 | SCC_ITS ---
Procedure done: Open reduction internal fixation left trimalleolar ankle fracture CPT 27675 3 minutes 15 seconds of fluoroscopic guidance, for a cumulative dose of 4.935 mGy, was provided to Dr. Jorgensen by the radiology department. C-arm images of the left ankle were saved for the patient's permanent record. [facility]
[2022-02-15 10:49] VITALS: BP 131/85; PULSE 93; RESP 18; TEMP 37; O2SAT 97
[2022-02-15] MEDS: CELEcoxib 200 mg Capsule 400 MG PO (10:59)
[2022-02-15] MEDS: gabapentin 300 mg Capsule PO (10:59)
--- NOTE | 2022-02-15 11:04 | ANES.PREANE2 ---
Pre-Anesthetic Assessment Height/Weight: Height 1.6 m Weight 127.006 kg Temp Pulse Resp BP Pulse Ox O2 Del Method 98.6 F 93 18 131/85 97 02/15/22 10:49 02/15/22 10:49 02/15/22 10:49 02/15/22 10:49 02/15/22 10:49 02/15/22 10:50 Preop Diagnosis: Left ankle trimalleolar ankle fracture Operation Date: 02/15/22 12:00 Proposed Procedures p Left trimalleolar ankle open reduction internal fixation CPT 30570,S82.852A(Left) - Keshawn Jorgensen DPM Familial anesthetic complications: None Was Beta Benito taken within 24 hours: N/A Was Clonidine taken within 24 hours: N/A Last intake: Intake Last Liquid Date 02/14/22 Last Liquid Time 21:00 Last Solid Date 02/14/22 Last Solid Time 19:00 Social No alcohol and No tobacco Exam alert, oriented x 3, clear to auscultation bilaterally and regular rate & rhythm Airway Mallampati: Class III Dentition: full CV/HEM Hypertension GI Gastroesophageal Reflux Disease Metabolic Diabetes Mellitus and Morbid Obesity Anesthetic Plan ASA status: 3 Anesthesia: General Risk of > 500 ml blood loss (7ml/kg in children): No Medications/Allergies Home Medications Medication Instructions Recorded Confirmed Last Taken Type citalopram 40 mg tablet (Celexa) 40 mg PO DAILY 08/31/19 02/15/22 02/14/22 History lisinopril 10 1 tab PO DAILY 08/31/19 02/15/22 02/14/22 History mg-hydrochlorothiazide 12.5 mg tablet pantoprazole 40 mg tablet,delayed 40 mg PO BID 09/02/19 02/15/22 02/14/22 History release tizanidine 4 mg tablet 4 mg PO Q6H PRN muscle spasms 01/16/20 02/15/22 02/14/22 History DME: Walker #1 ea 03/15/20 01/31/22 Unknown Rx hydrocodone 10 mg-acetaminophen 1 tab PO Q8H PRN Pain 02/14/21 02/07/22 Unknown History 325 mg tablet metformin 500 mg tablet 500 mg PO BID 02/14/21 02/15/22 02/14/22 History metoclopramide HCl 10 mg tablet 10 mg PO Q8H PRN nausea and 02/14/21 02/15/22 02/14/22 Rx (Reglan) vomiting #14 tabs mirtazapine 30 mg tablet 30 mg PO BEDTIME 02/14/21 02/15/22 02/14/22 History zolpidem 5 mg tablet 5 mg PO BEDTIME PRN Sleep 02/14/21 02/15/22 02/14/22 History Knee Scooter #1 ea 01/31/22 01/31/22 Unknown Rx apixaban 2.5 mg tablet (Eliquis) 2.5 mg PO Q12H DVT ppx 10 days #20 02/15/22 Unknown Rx tabs hydrocodone 10 mg-acetaminophen 1 tab PO Q6H Post op pain 7 days 02/15/22 02/15/22 02/14/22 Rx 325 mg tablet #28 tabs Allergies Allergy/AdvReac Type Severity Reaction Status Date / Time No Known Allergies Allergy Verified 02/07/22 11:18 PFSH Anesthesia Medical History GERD (gastroesophageal reflux disease) Hypercholesterolemia Hypertension Intervertebral disc disorder with radiculopathy of lumbosacral region Schwannoma Surgical History H/O dilation and curettage History of colonoscopy History of esophagogastroduodenoscopy (EGD) (12/30/19) S/P laparotomy for ectopic Status post laparoscopic cholecystectomy (12/30/19) Family History Father Hypertension Mother Hypertension Social History Smoking and tobacco status: never smoked Alcohol intake: never Household members: children Marital status: Single Current occupational status: unemployed History of recent travel: No Data Anesthesia Cardiac Studies: No Data to Display
[2022-02-15 11:13] LABS: Glucose Point of Care 137 mg/dL (70-110)
--- NOTE | 2022-02-15 11:30 | ANES.PROC ---
Anesthesia Procedures Procedure/Date: 02/15/22 Nerve Block ^: Nerve Block 1: Main Anesthesia: general anesthesia Time Out Performed: Yes Consent: requested by attending/covering physician, from patient, risks and benefits reviewed and patient agrees to proceed Nerve block location: adductor canal (L) and popliteal (L) Nerve block position: supine Anesthetic Used: ropivicaine 0.5% (30 ml) and with decadron (4 mg) Ultrasound used to: recognize landmarks and visualize and ID femerol nerve Nerve Stimulator Used?: No Interscalene/Femoral BLK: 4 stimuplex 21 g needle used for position and inplane approach, visualize local anesthetic spread and no vascular puncture identified Injection: neg aspiration of heme Patient Tolerated Procedure: well Additional Comments: 20 ml injection at popliteal block and 10 ml injection at adductor block
[2022-02-15] MEDS: sodium chloride 0.9% 1,000 ML 30 ML IV (11:41)
--- NOTE | 2022-02-15 11:44 | W.PM.OPSUD ---
Surgery/Procedure H&P Update DATE OF PROCEDURE: February 15, 2022 DATE H&P PERFORMED: 01/31/22 PREOP DIAGNOSIS: Left ankle trimalleolar ankle fracture PLANNED PROCEDURE: Operation Date: 02/15/22 12:00 Proposed Procedures p Left trimalleolar ankle open reduction internal fixation CPT 50901,S82.852A(Left) - Keshawn Jorgensen DPM
--- NOTE | 2022-02-15 11:47 | W.PM.OPSFHP ---
Same Day Surgery H&P Indication for Procedure/HPI DATE OF PROCEDURE: February 15, 2022 CHIEF COMPLAINT/INDICATIONFOR SURGICAL PROCEDURE: Left ankle trimalleolar fracture PREOP DIAGNOSIS: Left ankle trimalleolar ankle fracture PLANNED PROCEDURE: Operation Date: 02/15/22 12:00 Proposed Procedures p Left trimalleolar ankle open reduction internal fixation CPT 11951,S82.852A(Left) - Keshawn Jorgensen DPM Patient has history of left ankle trimalleolar fracture. Date of injury beginning of January 2022. Patient has been nonweightbearing up to this point. Presents to hospital for open reduction internal fixation of left ankle fracture at this time. Denies any constitutional symptoms. Medications/Allergies* No known drug allergies Home Medications Medication Instructions Recorded Confirmed Type citalopram 40 mg tablet (Celexa) 40 mg PO DAILY 08/31/19 02/15/22 History lisinopril 10 1 tab PO DAILY 08/31/19 02/15/22 History mg-hydrochlorothiazide 12.5 mg tablet pantoprazole 40 mg tablet,delayed 40 mg PO BID 09/02/19 02/15/22 History release tizanidine 4 mg tablet 4 mg PO Q6H PRN muscle spasms 01/16/20 02/15/22 History hydrocodone 10 mg-acetaminophen 1 tab PO Q8H PRN Pain 02/14/21 02/07/22 History 325 mg tablet metformin 500 mg tablet 500 mg PO BID 02/14/21 02/15/22 History mirtazapine 30 mg tablet 30 mg PO BEDTIME 02/14/21 02/15/22 History zolpidem 5 mg tablet 5 mg PO BEDTIME PRN Sleep 02/14/21 02/15/22 History Allergies/Adverse Reactions Allergy/AdvReac Type Severity Reaction Status Date / Time No Known Allergies Allergy Verified 02/07/22 11:18 Current Medications: Generic Name Dose Route Start Last Admin Trade Name Freq PRN Reason Stop Dose Admin Sodium Chloride 1,000 mls @ 30 mls/hr 02/15/22 10:30 02/15/22 11:41 Sodium Chloride 0.9% IV 02/16/22 10:29 30 mls/hr .Q24H JALIL Administration Pertinent History/Comorbid Conditions* Medical History (Updated 02/01/22 @ 23:07 by Keshawn Jorgensen DPM) GERD (gastroesophageal reflux disease) Hypercholesterolemia Hypertension Intervertebral disc disorder with radiculopathy of lumbosacral region Schwannoma Surgical History (Updated 04/18/20 @ 14:47 by Bart Patterson MD) H/O dilation and curettage History of colonoscopy History of esophagogastroduodenoscopy (EGD) (12/30/19) S/P laparotomy for ectopic Status post laparoscopic cholecystectomy (12/30/19) Family History (Updated 08/31/19 @ 12:52 by Nia Dee LPN) Hypertension Father Mother Social History Smoking and tobacco status: never smoked Alcohol intake: never Household members: children Marital status: Single Current occupational status: unemployed History of recent travel: No Pertinent Exam Findings alert, oriented x 3, clear to auscultation bilaterally, regular rate & rhythm, operative site marked and procedure specific exam findings MENTAL: A & O x3; NAD HEART: Regular rate and rhythm, S1, S2, no murmurs rubs or gallops LUNGS: Clear to auscultation, no labored breathing no retraction MUSCULOSKELETAL: Pain, edema left lower extremity Recommendations Surgery/Procedure today Other Plans: Left ankle trimalleolar ORIF Coding Level of Care Code Acute 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
[2022-02-15 14:32] VITALS: BP 130/91; PULSE 77; RESP 15; TEMP 36.8; O2SAT 99
[2022-02-15 14:40] VITALS: BP 128/108; PULSE 83; RESP 17; O2SAT 99
--- NOTE | 2022-02-15 14:45 | XR_ITS ---
WS: [id number] Left ankle, 3 views, 02/15/2022 Clinical Data: Post op left ankle ORIF Comparison: Left ankle, 01/11/2022. Findings: There is a plate in the distal left fibula fixed with multiple screws. There is a separate anterior p osterior screw in the distal left fibula. There is an curved plate reducing a fracture of the medial malleolus held in place with for orthopedic screws. There is a screw crossing the fibula into the tib ia to aid the reduction. Surgical jazmyne in the subcutaneous tissue over the medial and lateral dist al left leg are seen.. XR/XR ankle LT min 3V* [id number] Impression: Internal fixation of bimalleolar fracture.
[2022-02-15 14:52] VITALS: BP 150/102; PULSE 86; RESP 15; TEMP 36.8; O2SAT 94
[2022-02-15 15:03] VITALS: BP 125/86; PULSE 84; RESP 18; TEMP 36.6; O2SAT 95
[2022-02-15 15:30] VITALS: BP 128/82; PULSE 86; RESP 18; TEMP 36.7; O2SAT 95
--- NOTE | 2022-02-15 16:46 | P.OP_ITS ---
Operative Report Date of procedure: February 15, 2022 Pre-op diagnosis: Preop Diagnosis Left ankle trimalleolar ankle fracture Post-op diagnosis: Same Post-op findings: Trimalleolar ankle fracture left ankle Procedure done: Open reduction internal fixation left trimalleolar ankle fracture CPT 95146 Implants: Anatomical fibular plate with 3.5 mm locking and nonlocking screws, medial malleoli are hook plate with 3.5 millimeter screws and 1 snap off syndesmotic screw from [place] [address] Surgeon: Dr. Keshawn Jorgensen, D.P.M. Estimated blood loss: Less than 15 cc 119 minutes Complications: None Brief History: Patient sustained a fall resulting in left ankle trimalleolar fracture DOI: 01/11/2022. Procedure: Patient is a 41-year-old female that has a history of left trimalleolar ankle fracture. The extent of the injury requires open reduction internal fixation. A lengthy discussion regarding the procedure, including risks and complications has been had with the patient and is noted in the recent clinic note. Written and verbal consent have been obtained. All patient questions have been answered to the patient?s satisfaction. No written or verbal guarantees have been given or implied. The patient has been NPO since midnight. The history has been reviewed and the history and physical is current. The signed consent was confirmed and placed in the patient chart. Patient imaging has been reviewed and is consistent with thediagnosis. Under mild sedation, the patient was brought into the operating room and placed on the table in the supine position. IV antibiotics were given by the anesthesia team as preoperative surgical prophylaxis. General sedation was then performed by the anesthesiateam. A pneumatic tourniquet was then placed about the left thigh. The operative extremity was then prepped and draped in the usual fashion. The extremity was then elevated and exsanguinated before the tourniquet was inflated to 325 mmHg. After inflation, the following procedure was then performed. Attention was directed to the lateral aspect of the left ankle where a 12 cm incision was made with a #15 blade. Dissection was carried down through subcutaneous and superficial fascia. Any bleeders were cauterized as necessary during dissection. Dissection was carried down to the level of the periosteum which was incised. Tissue was reflected from the fibula anteriorly and posteriorly to expose the fibular fracture. There is noted to be hematoma formation within the fracture site as well as bone healing which had started. Care was taken to identify and preserve the peroneal tendons during dissection. Next a commendation of curette and dental pick were used to remove the hematoma formation and free up the fracture site for mobilization. Next, using a rqdjq-oz-gqiae reduction clamp the fibula was attempted to be drawn out to length. Ligamentotaxis was unable to be achieved through this method. Further dissection was carried out to further mobilize the distal fibula. Still unable to reduce the fracture it was decided to proceed with a push pull technique. The anatomical nine-hole fibular plate from [place] was inserted on the distal fibula. It was fixated using olive wires. Next a 4.2 mm cortical screw was inserted in the distal fibua. Using a push pull technique with this 4.2 millimeter screw in the plate the fibula was extended out distally as distal as the technique would allow. With length achieved, the plate was temporarily fixated with olive wires. Next a lobster claw clamp was used to hold the reduction. An anterior to posterior interfrag screw 3.5 mm was then inserted across the fracture site. Good positioning of the screw was noted. The anatomical fibular plate was then drilled and filled with 3.5 mm locking and nonlocking screws in standard fashion. Attention was then directed to the medial aspect of the ankle where an 8 cm incision was made with #15 blade. Dissection was carried down through subcutaneous and superficial fascia to the level of the medial malleolus. The medial malleolus was noted to be comminuted with extremely soft bone. Dissectio n was carried out to mobilize the main fragment of the medial malleolus with care to preserve the smaller fragments. It was noted to be broken up into an anterior and posterior portion. It was decided that it would be best to proceed with a medial malleolar hook plate. This was positioned in the appropriate position to hold the comminuted pieces in place and to restore medial gutter mortise space. The holes of the plate were then drilled and filled in standard fashion using 3.5 mm locking and nonlocking screws. Attention was then directed to the lateral aspect of the ankle. Syndesmosis was stressed and it was noted that the patient would benefit from syndesmotic fixation. A breakaway screw from [place] was inserted into the anatomical fibular plate in standard fashion. Good positioning of hardware was noted on AP and lateral views as well as clinically. The posterior malleolar fragment was noted to be appropriately positioned and reduced after fixation of the lateral and medial malleolus. The site was then irrigated with copious amounts of sterile saline before attention was directed to closure. Deep tissue was closed with 2-0 Vicryl followed by subcuticular closure with 3-0 Vicryl in running subcuticular fashion followed by skin jazmyne. The tourniquet was let down good hyperemic response was noted to all digits of the left foot. The patient tolerated the procedure and anesthesia well and without complication. The patient was transported from the operating room to the recovery room with vital signs stable and vascular status intact to all digits of the left foot. Thepatient was given both written and verbal instructions to remain nonweightbearing to the operative extremity, to keep dressings/splint clean, dry and intact and to take pain medication as directed. The patient will follow-up in the outpatient setting at their scheduled appointment. The patient was discharged with my personal number and was instructed to call if any questions or issues should arise. They were discharged home once anesthesia criteria was met.
== END 2022-02-15 15:38 | disposition home or self-care (01) ==
PROVIDERS: PCP Family Medicine; Visit Provider Podiatrist Foot & Ankle Surgery
PROC: (CPT 27822; principal; 2022-02-15 12:00)
DX: S82.852A Displaced trimalleolar fracture of left lower leg, initial encounter for closed fracture (principal); E11.9 Type 2 diabetes mellitus without complications; I10 Essential (primary) hypertension; E78.00 Pure hypercholesterolemia, unspecified; K21.9 Gastro-esophageal reflux disease without esophagitis; E66.01 Morbid (severe) obesity due to excess calories; Z68.42 Body mass index [BMI] 45.0-49.9, adult; Z79.84 Long term (current) use of oral hypoglycemic drugs; W19.XXXA Unspecified fall, initial encounter
CPT/HCPCS: 27822; 36416; 73600; 73610; 76000; 82962; C1713 ×2; J1100; J2405; J2704; J2795; J3010; J7030

== ENCOUNTER → 2022-02-21 10:23 | Outpatient (BNVA) | payer MEDICAID, SELFPAY | PROVIDERS: PCP Family Medicine; Visit Provider Podiatrist Foot & Ankle Surgery | DX: S82.852A Displaced trimalleolar fracture of left lower leg, initial encounter for closed fracture (principal); X58.XXXA Exposure to other specified factors, initial encounter | CPT/HCPCS: 73610 ==

== ENCOUNTER → 2022-03-07 10:19 | Outpatient (BNVA) | payer MEDICAID, SELFPAY | PROVIDERS: PCP Family Medicine; Visit Provider Podiatrist Foot & Ankle Surgery | DX: X58.XXXA Exposure to other specified factors, initial encounter (principal); S82.852A Displaced trimalleolar fracture of left lower leg, initial encounter for closed fracture | CPT/HCPCS: 73610 ==

== ENCOUNTER 2022-03-07 15:46 | Outpatient (CLI) | payer MEDICAID, SELFPAY | END 2022-03-07 15:47 | disposition home or self-care (01) | LOC: SPT 15:46 | PROVIDERS: PCP Family Medicine; Visit Provider Podiatrist Foot & Ankle Surgery | DX: Z46.89 Encounter for fitting and adjustment of other specified devices (principal); M25.572 Pain in left ankle and joints of left foot | CPT/HCPCS: 97760; L4361 ==

== ENCOUNTER → 2022-03-21 10:59 | Outpatient (BNVA) | payer MEDICAID, SELFPAY | PROVIDERS: PCP Family Medicine; Visit Provider Podiatrist Foot & Ankle Surgery | DX: S82.852A Displaced trimalleolar fracture of left lower leg, initial encounter for closed fracture (principal); X58.XXXA Exposure to other specified factors, initial encounter; M51.17 Intervertebral disc disorders with radiculopathy, lumbosacral region | CPT/HCPCS: 73610 ==

== ENCOUNTER → 2022-05-09 10:11 | Outpatient (BNVA) | payer MEDICAID, SELFPAY | PROVIDERS: PCP Family Medicine; Visit Provider Podiatrist Foot & Ankle Surgery | DX: Z98.890 Other specified postprocedural states (principal); S99.911A Unspecified injury of right ankle, initial encounter; X58.XXXA Exposure to other specified factors, initial encounter | CPT/HCPCS: 73610 ==

== ENCOUNTER 2022-05-09 11:52 | Outpatient (CLI) | payer MEDICAID, SELFPAY | END 2022-05-09 11:53 | disposition home or self-care (01) | LOC: SPT 12:02 | PROVIDERS: PCP Family Medicine; Visit Provider Podiatrist Foot & Ankle Surgery | DX: Z46.89 Encounter for fitting and adjustment of other specified devices (principal); M25.572 Pain in left ankle and joints of left foot | CPT/HCPCS: 97760; L1902 ==

== ENCOUNTER → 2022-08-21 15:36 | Outpatient (BNVA) | payer MEDICAID, SELFPAY | PROVIDERS: PCP Family Medicine; Visit Provider Podiatrist Foot & Ankle Surgery | DX: S82.852A Displaced trimalleolar fracture of left lower leg, initial encounter for closed fracture (principal); X58.XXXA Exposure to other specified factors, initial encounter | CPT/HCPCS: 73610 ==

== ENCOUNTER → 2022-09-18 09:20 | Outpatient (BNVA) | payer MEDICAID, SELFPAY | PROVIDERS: PCP Family Medicine; Referring Provider Family Medicine; Visit Provider Psychiatry & Neurology Neurology | DX: G43.909 Migraine, unspecified, not intractable, without status migrainosus (principal) | CPT/HCPCS: 36415; 82607; 82652; 83921; 84439; 84443; 84481; 85651; 86140; 86160; 86162; 86235; 86255; 86376 ==

== ENCOUNTER 2022-10-10 12:10 | Outpatient (CLI) | payer MEDICAID, SELFPAY ==
--- NOTE | 2022-10-10 13:00 | MR_ITS ---
WS: [email or web address] MRI HEAD WITHOUT CONTRAST TECHNIQUE: Sagittal T1, T2 axial, T2 axial FLAIR, axial and coronal T1 images, axial susceptibility w eighted imaging, axial diffusion weighted images, and coronal T2 images were obtained. IV access coul d not be obtained. Contrast not administered. CLINICAL INFORMATION: G43.909 - Migraine, unspecified, not intractable, without... COMPARISON: IV access could not be obtained. Contrast not administered. FINDINGS: No evidence of restricted diffusion to suggest acute ischemia. Ventricular system and basal cisterns are patent. No suspicious supratentorial intracranial signal abnormalities. Small peripheral LEFT cer ebellum lesions due to prior ischemia. Normal vascular flow voids at the skull base. No extra-axial fluid collections. Paranasal sinuses are well aerated. Mastoid air cells are well aerated. No hemosiderin on the susceptibly weighted images. Normal optic chiasm and pituitary infundibulum. Temporal lobes and hippocampal formations are normal in appearance. MR/MR head wo con* [id number] IMPRESSION: 1. No evidence of restricted diffusion to suggest acute ischemia. 2. Patchy foci of T2 signal abnormality in the LEFT cerebellum likely due to p rior ischemia. No other suspicious intracranial signal abnormalities. 3. No hemosiderin on susceptibly weighted images. 4. Normal optic chiasm and pituitary infundibulum. Temporal lobes and hippocam pal formations are normal in appearance. 5. No other suspicious findings.
[2022-10-10 14:23] LABS: Homocysteine 13.47
== END 2022-10-10 12:11 | disposition home or self-care (01) ==
LOC: RAD 12:11
PROVIDERS: PCP Family Medicine; Visit Provider Psychiatry & Neurology Neurology
DX: D51.0 Vitamin B12 deficiency anemia due to intrinsic factor deficiency (principal); G43.909 Migraine, unspecified, not intractable, without status migrainosus
CPT/HCPCS: 36415; 70551; 70553; 83090

== ENCOUNTER 2023-01-21 11:27 | Outpatient (CLI) | payer MEDICAID, SELFPAY ==
--- NOTE | 2023-01-21 11:45 | MR_ITS ---
WS: [email or web address] EXAMINATION: MR ankle LT wo con* [id number] ORDER DATE: 01/21/2023 12:15 PM COMPARISON: None. HISTORY: M84.373A - Stress fracture, unspecified ankle, initial en... CONTRAST: None. TECHNIQUE: Axial proton density fat sat, axial T1, sagittal proton density, sagittal STIR, coronal T2 fat sat, and coronal T1 sequences performed. After contrast, axial T1 fat sat, coronal T1 fat sat, and sagittal T1 fat sat were performed. FINDINGS: Images degraded by susceptibility artifact from prior plate and screw fixation distal fibul a and lateral malleolus and medial malleolus. Screw fixation across the tibial plafond and syndesmosi s. Incomplete healing with persistent visualized comminuted fractures involving the tibial plafond and e xtending to the articular surface. This is best appreciated on the coronal imaging. Associated edema in the distal tibial plafond. Medial and lateral malleolus appear better healed. Tiny ankle effusion. Small amount of fluid and edema in the dorsal foot soft tissues. Distal Achilles appears normal. Normal peroneal tendon sheath. Normal extensor and flexor compartment tendons. Normal bone marrow signal in the talus and navicular. Normal bone marrow signal in the cubo id. Normal plantar aponeurosis. IMPRESSION: Images degraded due to susceptibility artifact from hardware. 1. Incomplete healing with residual comminuted fracture fragments involving the tibial plafond and e xtending to the articular surface. 2. Talar dome appears normal. 3. Medial and lateral malleolus and distal fibula fixation has a normal appearance where visualized. This would be better evaluated with CT if indicated.
[2023-01-21 13:02] LABS: Basophils # 0.1 10^3/uL (0.0-0.1); Basophils % 0.6 %; Eosinophils # 0.1 10^3/uL (0.0-0.8); Hematocrit 41.5 % (37.0-47.0); Hemoglobin 13.3 g/dL (11.5-15.3); Lymphocytes # 2.9 10^3/uL (0.8-4.8); Lymphocytes % 26.5 %; Mean Corpuscular Hemoglobin 27.9 pg (28.0-34.0); Mean Corpuscular Volume 87.2 fl (81-99); Mean Platelet Volume 10.3 fL (7.4-10.4); Monocytes # 0.6 10^3/uL (0.2-0.9); Monocytes % 5.8 %; Neutrophils # 7.11 10^3/uL (1.8-7.7); Neutrophils % 65.8 %; Nucleated Red Blood Cells % 0 %; Platelet Count 325 10^3/cmm (130-400); Red Blood Count 4.76 10^6/uL (4.1-5.3); Red Cell Distribution Width 12.6 % (12.1-15.1); White Blood Count 10.8 10^3/uL (4.0-10.0)
[2023-01-21 13:23] LABS: Alanine Aminotransferase 30 U/L (0-33); Albumin Level 4.2 g/dL (3.5-5.2); Alkaline Phosphatase 95 U/L (35-105); Anion Gap 16.1 (5-19); Aspartate Amino Transferase 25 U/L (0-32); Blood Urea Nitrogen 9 mg/dL (6-20); Carbon Dioxide 25 mmol/L (22-29); Chloride 102 mmol/L (98-107); Globulin 2.9 g/dL (1.3-4.6); Glomerular Filtration Rate 77.9 mL/min (90-130); Glucose 80 mg/dL (65-115); Osmolality Calculated 286 mOsm/kg (285-295); Potassium 4.1 mmol/L (3.5-5.1); Sodium 139 mmol/L (136-145); Total Bilirubin 0.4 mg/dL (0.15-1.2); Total Protein 7.1 g/dL (6.6-8.7)
[2023-01-23 18:45] LABS: Immunoglobulin A 380 mg/dL (47-310)
[2023-01-24 02:39] LABS: Gliadin Ab.IgA <1.0 U/mL; Gliadin Ab.IgG <1.0 U/mL
[2023-01-24 02:50] LABS: Tissue Transglutaminase IgA Ab <1.0 U/mL; Tissue transglutaminase Ab.IgG <1.0 U/mL
== END 2023-01-21 11:28 | disposition home or self-care (01) ==
PROVIDERS: Surgery; PCP Family Medicine; Visit Provider Podiatrist Foot & Ankle Surgery
DX: M84.362D Stress fracture, left tibia, subsequent encounter for fracture with routine healing (principal); R19.7 Diarrhea, unspecified; M25.373 Other instability, unspecified ankle; Z98.890 Other specified postprocedural states
CPT/HCPCS: 73721; 80053; 82784; 83516; 83630; 83993; 85025; 87177; 87209; 87493; 87506

== ENCOUNTER 2023-07-12 13:17 | Outpatient (CLI) | payer MEDICAID, SELFPAY ==
--- NOTE | 2023-07-12 13:45 | MR_ITS ---
WS: [email or web address] MRA HEAD TECHNIQUE: Axial 3-D TOF images obtained with axial images and axial, sagittal, and coronal 2-D refor matted images. CLINICAL INFORMATION: M51.17 - Intervertebral disc disorders with radiculopathy... COMPARISON: MRI head 10/10/2022 FINDINGS: Distal vertebral arteries are patent. Basilar artery is patent. 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 Normal va scularity to the GREEN BUILDING MATERIALS DESIGNER territory bilaterally. Both ICAs are patent at the skull base. Normal vascularity to the KADE and MCA territories bilaterally . No evidence of high-grade proximal stenosis or aneurysm. IMPRESSION: 1. Normal intracranial MRA. 2. 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 3. No evidence of high-grade proximal stenosis or aneurysm.
== END 2023-07-12 13:18 | disposition home or self-care (01) ==
LOC: RAD 13:17
PROVIDERS: PCP Family Medicine; Visit Provider Psychiatry & Neurology Neurology
DX: M51.17 Intervertebral disc disorders with radiculopathy, lumbosacral region (principal); R51.9 Headache, unspecified; Q28.3 Other malformations of cerebral vessels
CPT/HCPCS: 70544

== ENCOUNTER 2023-08-09 08:32 | Outpatient (CLI) | payer MEDICAID, SELFPAY ==
--- NOTE | 2023-08-09 09:15 | FL_ITS ---
WS: [email or web address] LUMBAR PUNCTURE CLINICAL INFORMATION: R51.9 - Headache, unspecified COMPARISON: None. TECHNIQUE: Informed consent: The procedure and its potential risk and complications were discussed with the isatu ent. Verbal and written consent was obtained. Timeout: A timeout was performed to confirm correct patient, procedure, and site. Patient was prepped and draped in the usual sterile fashion. Lidocaine 1% was used for local anesthes ia. Utilizing fluoroscopic guidance, a 5.0 inch 22-gauge spinal needle was advanced into the subarach noid space at L2-3 via right oblique sublaminar approach. Free flow of CSF was obtained initially blo od-tinged which cleared with additional drainage likely from the venous plexus. 9 cc of CSF was colle cted and sent to the lab for further analysis. Patient remained supine in the radiology department 45 minutes post procedure. FLUOROSCOPIC TIME: 1min [id number] # of spot films: 3 IMPRESSION: Fluoroscopically guided lumbar puncture. No immediate complications
[2023-08-09 12:13] LABS: Glucose CSF 72 mg/dL (40-70); Total Protein CSF 41 mg/dL (15-45)
[2023-08-22 02:06] LABS: VDRL on CSF NON-REACTIVE
== END 2023-08-09 08:33 | disposition home or self-care (01) ==
LOC: RAD 08:32
PROVIDERS: PCP Family Medicine; Visit Provider Psychiatry & Neurology Neurology
DX: R51.9 Headache, unspecified (principal)
CPT/HCPCS: 62328; 82945; 84157; 86592; 87015; 87070; 87075; 87116; 87205; 87206; 87801

== ENCOUNTER → 2023-10-01 12:39 | Outpatient (BNVA) | payer MEDICAID, SELFPAY | PROVIDERS: PCP Family Medicine; Visit Provider Orthopaedic Surgery | DX: M54.9 Dorsalgia, unspecified (principal); D49.2 Neoplasm of unspecified behavior of bone, soft tissue, and skin | CPT/HCPCS: 72110 ==

== ENCOUNTER → 2024-05-11 15:14 | Outpatient (BNVA) | payer MEDICAID, SELFPAY | PROVIDERS: PCP Family Medicine; Visit Provider Podiatrist Foot & Ankle Surgery | DX: M25.572 Pain in left ankle and joints of left foot (principal); M25.372 Other instability, left ankle; M84.372A Stress fracture, left ankle, initial encounter for fracture | CPT/HCPCS: 73610 ==

== ENCOUNTER 2024-05-15 08:36 | Outpatient (CLI) | payer MEDICAID, SELFPAY ==
--- NOTE | 2024-05-15 09:00 | CTR_ITS ---
PROCEDURE INFORMATION: Exam: CT Left Lower Extremity, Ankle Exam date and time: 05/15/2024 9:41 AM Age: 43 years old Clinical indication: Prior surgery; Surgery date: 6+ months; Patient HX: Left ankle FX 2 years ago, non union, continued pain and swelling TECHNIQUE: Imaging protocol: CT of the left lower extremity without contrast was performed. Exam focused on the ankle. Radiation optimization: All CT scans at this facility use at least one of these dose optimization techniques: automated exposure control; mA and/or kV adjustment per patient size (includes targeted exams where dose is matched to clinical indication); or iterative reconstruction. COMPARISON: MR ankle LT wo con* [id number] 01/21/2023 12:10 PM RADIATION DOSE METRICS: Total DLP (mGy-cm): 146.39 FINDINGS: Bones/joints: There is hardware along the medial malleolus and distal fibula from prior, healed ORIF. There is moderate secondary osteoarthritis at the ankle. No calcaneal spur. There is partial ossification of the syndesmosis. No acute or ununited fracture is identified. Soft tissues: The visualized Achilles tendon is grossly normal in morphology. There is cutaneous/subcutaneous scarring along the medial and lateral ankle. CT/CT ankle LT wo con* [id number] IMPRESSION: 1. No acute or ununited fracture is identified. 2. Hardware along the medial malleolus and distal fibula from prior, healed ORIF. 3. 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
== END 2024-05-15 08:37 | disposition home or self-care (01) ==
LOC: RAD 08:38
PROVIDERS: PCP Family Medicine; Visit Provider Podiatrist Foot & Ankle Surgery
DX: S82.202K Unspecified fracture of shaft of left tibia, subsequent encounter for closed fracture with nonunion (principal); M19.272 Secondary osteoarthritis, left ankle and foot; X58.XXXA Exposure to other specified factors, initial encounter
CPT/HCPCS: 73700